=== PATIENT | male | born 1975 ===

== ENCOUNTER 2018-05-23 12:29 | Inpatient (IN) | payer BC, OTHER ==
--- NOTE | 2018-05-23 13:45 | ED ---
Psych HPI - General Chief Complaint: Psychiatric Symptoms Stated Complaint: EPS Time Seen by Provider: 05/23/18 12:54 Source: patient, RN notes reviewed, old records reviewed Mode of arrival: ambulatory - History of Present Illness Initial Comments: Patient is a 43-year-old male presents emergency with chief complaint of paranoia and increased anxiety. He is a . Apparently over the past week he is been taking the television is talking to them and that this the Russians are hacking into his phone. He did have a severe panic attack after an MRI on Friday. His [id number] offered him in [employer] which did help with symptoms at that time. He is had no previous psych history. He has been started on trazodone and Vistaril for his PCP. They went to the [place] [facility] yesterday. Who suggested to start the Patient on Seroquel. They have not started this yet as concerned and they wanted to follow-up with primary care physician. Patient has been having further in depth testing to his onsets of paranoia including Lyme titer levels in MRIs. These tests are unremarkable at this time. They deny any physical complaints. Patient is here with his . - Related Data Allergies Allergy/AdvReac Type Severity Reaction Status Date / Time No Known Allergies Allergy Verified 05/23/18 12:42 Review of Systems ROS Statement: Those systems with pertinent positive or pertinent negative responses have been documented in the HPI. ROS Other: All systems not noted in ROS Statement are negative. Past Medical History Past Medical History: No Reported History History of Any Multi-Drug Resistant Organisms: None Reported Past Surgical History: Tonsillectomy Past Psychological History: No Psychological Hx Reported Smoking Status: Never smoker Past Alcohol Use History: Occasional Past Drug Use History: None Reported General Exam - General Exam Comments Initial Comments: 43-year-old male. Alert and oriented. Patient appears in no acute distress. Limitations: no limitations General appearance: alert, in no apparent distress Head exam: Present: atraumatic, normocephalic, normal inspection Eye exam: Present: normal appearance, PERRL, EOMI. Absent: scleral icterus, conjunctival injection, periorbital swelling ENT exam: Present: normal exam, mucous membranes moist Neck exam: Present: normal inspection. Absent: tenderness, meningismus, lymphadenopathy Respiratory exam: Present: normal lung sounds bilaterally. Absent: respiratory distress, wheezes, rales, rhonchi, stridor Cardiovascular Exam: Present: regular rate GI/Abdominal exam: Present: soft, normal bowel sounds. Absent: distended, tenderness, guarding, rebound, rigid Back exam: Present: normal inspection Neurological exam: Present: alert, oriented X3, CN II-XII intact Psychiatric exam: Present: anxious, other (Patient reports he is paranoid. Believes that there are voices and the television and the government is after him.). Absent: normal affect, normal mood Skin exam: Present: warm, dry, intact, normal color. Absent: rash Course Vital Signs 05/23/18 12:43 Temperature 98.7 F Pulse Rate 66 Respiratory 18 Rate Blood Pressure 113/78 O2 Sat by Pulse 97 Oximetry Medical Decision Making - Medical Decision Making 43-year-old male present today with his for psychiatric evaluation due to increased anxiety and paranoia. Believes that the television speaking to him. Patient was evaluated by EPS and is sign in voluntarily. Patient will sign be transferred to psychiatric facility. Patient signed in voluntarily and and him and agree to treatment plan. - Lab Data Lab Results 05/23/18 Range/Units 12:45 Urine Opiates Screen Not Detected (NotDetected) Ur Oxycodone Screen Not Detected (NotDetected) Urine Methadone Screen Not Detected (NotDetected) Ur Propoxyphene Screen Not Detected (NotDetected) Ur Barbiturates Screen Not Detected (NotDetected) U Tricyclic Antidepress Not Detected (NotDetected) Ur Phencyclidine Scrn Not Detected (NotDetected) Ur Amphetamines Screen Not Detected (NotDetected) U Methamphetamines Scrn Not Detected (NotDetected) U Benzodiazepines Scrn Not Detected (NotDetected) Urine Cocaine Screen Not Detected (NotDetected) U Marijuana (THC) Screen Not Detected (NotDetected) Disposition Clinical Impression: Paranoia (psychosis), Anxiety Disposition: TRANSFER TO PSYCH HOSP/UNIT Condition: Stable Is patient prescribed a controlled substance at d/c from ED?: No Referrals: Katt Ray DO [Primary Care Provider] - 1-2 days Time of Disposition: 15:38
[2018-05-23 13:57] LABS: Amphetamine Screen,Urine Not Detected (NotDetected); Barbiturate Screen,Urine Not Detected (NotDetected); Benzodiazepines Screen,Urine Not Detected (NotDetected); Cocaine Screen,Urine Not Detected (NotDetected); Methadone Screen, Urine Not Detected (NotDetected); Opiate Screen,Urine Not Detected (NotDetected); Oxycodone Screen, Urine Not Detected (NotDetected); Phencyclidine Screen,Urine Not Detected (NotDetected); Tricyclic Antidepressant,Urine Not Detected (NotDetected); Urn Cannabinoid Scrn Not Detected (NotDetected)
[2018-05-23] MEDS ORDERED: ACETAMINOPHEN TAB 325 MG TAB PO PRN (15:56)
[2018-05-23] MEDS ORDERED: ZIPRASIDONE 20 MG VIAL IM PRN (15:56)
[2018-05-23] MEDS ORDERED: MAGNESIUM HYDROXIDE 2,400 MG/10 ML CUP PO PRN (15:56)
[2018-05-23] MEDS ORDERED: MAG HYDROX/AL HYDROX/SIMETH 30 ML CUP PO PRN (15:56)
[2018-05-23] MEDS ORDERED: MELATONIN 5 MG TABLET PO PRN (18:08)
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
[2018-05-23] MEDS: OLANZapine 2.5 MG TAB PO SCH (20:20)
[2018-05-24] MEDS: LORazepam 1 MG TAB PO PRN (02:39)
[2018-05-24 08:28] LABS: Basophils % (A) 1 %; Eosinophils # (A) 0.1 k/uL (0-0.7); Eosinophils % (A) 1 %; HCT 47.2 % (39.0-53.0); HGB 15.7 gm/dL (13.0-17.5); Lymphocytes # (A) 1.5 k/uL (1.0-4.8); Lymphocytes % (A) 25 %; MCH 31.8 pg (25.0-35.0); MCHC 33.2 g/dL (31.0-37.0); MCV 95.7 fL (80.0-100.0); Mean Platelet Volume 7.8; Monocytes # (A) 0.3 k/uL (0-1.0); Monocytes % (A) 5 %; Neutrophils # (A) 3.9 k/uL (1.3-7.7); Neutrophils % (A) 66 %; Platelet Count 183 k/uL (150-450); RBC 4.93 m/uL (4.30-5.90); RDW 13.3 % (11.5-15.5); WBC 5.8 k/uL (3.8-10.6)
[2018-05-24 09:32] LABS: ALT 37 U/L (21-72); AST 19 U/L (17-59); Albumin 4.5 g/dL (3.5-5.0); Alkaline Phosphatase 40 U/L (38-126); Anion Gap 8 mmol/L; Bilirubin, Delta 0.3 mg/dL (0.0-0.2); Bilirubin,Unconjugated 0.4 mg/dL (0.0-1.1); Blood Urea Nitrogen 12 mg/dL (9-20); Calcium 10.1 mg/dL (8.4-10.2); Carbon Dioxide 28 mmol/L (22-30); Chloride 104 mmol/L (98-107); Cholesterol 172 mg/dL (<200); Glucose 100 mg/dL (74-99); HDL Cholesterol 38 mg/dL (40-60); LDL Cholesterol,Calculated 106 mg/dL (0-99); Potassium 4.7 mmol/L (3.5-5.1); Sodium 140 mmol/L (137-145); Total Bilirubin 0.7 mg/dL (0.2-1.3); Total Protein 7.1 g/dL (6.3-8.2); Triglycerides 138 mg/dL (<150)
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
[2018-05-24 12:16] LABS: Appearance,Urine Clear (Clear); Bilirubin,Urine Negative (Negative); Blood,Urine Negative (Negative); Color,Urine Light Yellow; Glucose,Urine (UA) Negative (Negative); Ketones,Urine Negative (Negative); Leukocyte Esterase,Urine Negative (Negative); Nitrite,Urine Negative (Negative); Protein,Urine Negative (Negative); Specific Gravity,Urine 1.003 (1.001-1.035); Urobilinogen,Urine <2.0 mg/dL (<2.0)
[2018-05-24] MEDS: OLANZapine 2.5 MG TAB PO SCH (20:30)
[2018-05-24] MEDS ORDERED: MIRTAZAPINE 15 MG TAB PO SCH (21:00)
[2018-05-25 10:21] LABS: Hemoglobin A1C 5.3 % (4.0-6.0)
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
[2018-05-25] MEDS ORDERED: lamoTRIgine 25 MG TAB PO SCH (21:00)
[2018-05-25] MEDS ORDERED: PALIPERIDONE 3 MG TAB.ER.24 PO SCH (21:00)
[2018-05-26] MEDS: LORazepam 1 MG TAB PO PRN (09:47)
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
--- NOTE | 2018-05-26 15:38 | P.PN ---
Progress Note - Text Progress Note Date: 05/26/18 S: I was asked to see the patient by his nurse with concerns about hearing loss in the left ear. Patient said that he has been having issues with his hearing in the left ear for the past few days. He said that his ear is muffled. He denies any tinnitus or headache. He never had problems with his hearing before. No lightheadedness. No ear discharge or pain. No fevers or chills. O: HEENT, both ear canals examined with a status quo. Both ear canals appeared normal. There was some cerumen with no evidence of impaction on the left. Post tympanic membrane appeared normal. Patient had equal hearing to finger tap and finger rubbing on both sides. Neck with no lymphadenopathy Heart: Normal S1-S2 no S3-S4 no murmurs Lungs are clear to auscultation bilaterally A/P: Patient was reassured. We will use someDebroxl to help resolve the cerumen in the left ear canal. No evidence of cerumen impaction. We will continue to follow up as needed. If problem persist follow-up with audiology as an outpatient.
[2018-05-26] MEDS: PALIPERIDONE 6 MG TAB.ER.24 PO SCH (20:04)
[2018-05-26] MEDS ORDERED: lamoTRIgine 25 MG TAB PO SCH (21:00)
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
[2018-05-27] MEDS: PALIPERIDONE 6 MG TAB.ER.24 PO SCH (20:26)
[2018-05-27] MEDS: PRAMIPEXOLE 0.5 MG TAB PO SCH (20:26)
[2018-05-27] MEDS ORDERED: lamoTRIgine 25 MG TAB PO SCH (21:00)
[2018-05-28] MEDS ORDERED: buPROPion SR 150 MG TABLET.ER PO SCH (09:00)
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
[2018-05-28] MEDS: PRAMIPEXOLE 0.5 MG TAB PO SCH (20:05)
[2018-05-28] MEDS ORDERED: PALIPERIDONE 3 MG TAB.ER.24 PO SCH (21:00)
[2018-05-28] MEDS ORDERED: lamoTRIgine 100 MG TAB PO SCH (21:00)
[2018-05-29 06:16] VITALS: BP 132/87; PULSE 98; RESP 18; TEMP 98.5
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
== END 2018-05-29 12:59 | disposition home or self-care (01) | DRG 885 ==
LOC: EC 12:29 → 3MHU 15:50
PROVIDERS: ADMIT Psychiatry & Neurology Psychiatry; ATTEND Psychiatry & Neurology Psychiatry
DX: F31.5 Bipolar disorder, current episode depressed, severe, with psychotic features (principal); F41.0 Panic disorder [episodic paroxysmal anxiety]; G25.81 Restless legs syndrome; G47.00 Insomnia, unspecified; H61.22 Impacted cerumen, left ear; N52.9 Male erectile dysfunction, unspecified; G43.909 Migraine, unspecified, not intractable, without status migrainosus; Z81.8 Family history of other mental and behavioral disorders
CPT/HCPCS: 80053; 80061; 80306; 81003; 82075; 82248; 83036; 83655; 84403; 84443; 85025; 86780; 99285